=== PATIENT | male | born 1950 | race Caucasian/White ===

== ENCOUNTER 2017-10-30 16:59 | Emergency (ER) | payer MEDICARE ==
[~2017-10-30] VITALS: Ht 180.3 cm; Wt 106.7 kg
[2017-10-30] MEDS ORDERED: proparacaine 0.5% ophthalmic drops 15ml EACHEYE ONE (20:40)
[2017-10-30 21:40] LABS: BASOPHILS % (AUTO) 0.2 % (0-1); EOSINOPHILS # (AUTO) 0.3 X10'3 (0-0.9); EOSINOPHILS % (AUTO) 4.5 % (0-6); HEMATOCRIT 45.6 % (42.0-52.0); HEMOGLOBIN 15.9 g/dl (14.0-17.9); LYMPHOCYTES # (AUTO) 2.3 X10'3 (1.1-4.8); LYMPHOCYTES % (AUTO) 30.1 % (21-51); MEAN CORPUSCULAR HEMOGLOBIN 31.9 PG (27.0-31.0); MEAN CORPUSCULAR VOLUME 91.1 FL (78-98); MEAN PLATELET VOLUME 6.9 FL (7.4-10.4); MONOCYTES # (AUTO) 0.8 X10'3 (0-0.9); MONOCYTES % (AUTO) 11.1 % (2-12); NEUTROPHILS % (AUTO) 54.1 % (42-75); PLATELET COUNT 293 X10'3 (140-440); WHITE BLOOD COUNT 7.5 X10'3 (4.5-11.0)
[2017-10-30 22:02] LABS: ALANINE AMINOTRANSFERASE 58 U/L (12-78); ALBUMIN/GLOBULIN RATIO 1.1 (1.1-1.5); ALKALINE PHOSPHATASE 44 IU/L (46-116); ANION GAP 7 (8-16); ASPARTATE AMINO TRANSFERASE 29 U/L (10-37); BILIRUBIN,TOTAL 0.6 MG/DL (0.1-1.0); BLOOD UREA NITROGEN 18 MG/DL (7-18); CALCIUM 9.3 MG/DL (8.5-10.1); CHLORIDE 106 MMOL/L (99-107); CREATININE 1.06 MG/DL (0.60-1.10); GLUCOSE 99 MG/DL (70-104); POTASSIUM 4.3 MMOL/L (3.5-5.1); SODIUM 141 MMOL/L (135-145); TOTAL CARBON DIOXIDE 28.3 MMOL/L (24-32); TOTAL PROTEIN 7.6 G/DL (6.4-8.2); eGFR 70 ML/MIN
[2017-10-30 22:06] LABS: C-REACTIVE PROTEIN < 0.05 MG/DL (0.0-0.5)
[2017-10-30] MEDS ORDERED: ketorolac tromethamine 15mg/ml inj. IM ONE (22:40)
[2017-10-30 22:55] VITALS: BP 137/73
== END 2017-10-30 22:57 | disposition home or self-care (01) ==
LOC: ER 17:00
DX: H53.8 Other visual disturbances (principal); R51 Headache; Z86.73 Personal history of transient ischemic attack (TIA), and cerebral infarction without residual deficits; Z98.890 Other specified postprocedural states
CPT/HCPCS: 36415; 70450; 80053; 85025; 85651; 86140; 96372; 99285; J1885

== ENCOUNTER 2018-12-01 06:16 | Emergency (ER) | payer MEDICARE ==
[~2018-12-01] VITALS: Ht 180.3 cm; Wt 106.9 kg
--- NOTE | 2018-12-01 06:48 | NUR ---
AMBULATORY TO ER #12 WITH C/O NOSE BLEEDS ON AND OFF SINCE SATURDAY. STATES HE HAD SPOKE WITH HIS DOCTOR AND WAS INSTRUCTED TO PUT VICKS IN HIS NOSE FOR MOISTURE. STATES THAT WORKED TEMPORARILY BUT BLEEDING CONTINUED LAST NIGHT. NO ACTIVE BLEEDING NOTED AT THIS TIME.
[2018-12-01] MEDS ORDERED: silver nitrate applicator stick TP ONE (06:50)
[2018-12-01] MEDS ORDERED: LIDOcaine 4% (40 mg/ml) topical solution 50ml TP ONE (06:50)
--- NOTE | 2018-12-01 07:42 | NUR ---
DR HAY STATES TO WATCH FOR BLEEDING FOR 15 MIN, LUIS PRIMARY NURSE INFORMED.
[2018-12-01 08:01] VITALS: BP 158/112
--- NOTE | 2018-12-01 08:22 | NUR ---
PACKING INTACT IN RIGHT NARE. PATIENT HAD TO BLOW NOSE (LAFT NARE) FOR MODERATE AMOUNT OF RED, SANGUINOUS OUTPUT. NO ACTIVE BLEEDING NOTED AFTER PATIENT CLEANED OUT LEFT NARE AND PACKING REMAINS INTACT IN RIGHT NARE.
== END 2018-12-01 08:38 | disposition home or self-care (01) ==
LOC: ER 06:16
DX: R04.0 Epistaxis (principal); Z98.890 Other specified postprocedural states
CPT/HCPCS: 30901; 99284